=== PATIENT | female | born 1950 | race Caucasian/White ===

== ENCOUNTER 2020-10-04 10:19 | Day surgery (SDC) | payer SELFPAY, OTHER ==
[2020-10-03 09:27] VITALS: BMI 33.1
--- NOTE | 2020-10-03 10:40 | RAD_ITS ---
STUDY: X-RAY CHEST REASON FOR EXAM: Female, 70 years old. HAVING CHEST TIGHTNESS ON EXERTION TECHNIQUE: PA and lateral views of the chest. COMPARISON: None. FINDINGS: The lungs are clear and expanded. There is no demonstrated pleural abnormality. Normal size heart. Normal mediastinum and vicki. Normal visualized pulmonary arteries. There is atherosclerotic calcification of the aortic arch with tortuosity. There are degenerative changes of the visualized thoracic spine. There is degenerative osteoarthritis of the bilateral shoulders. There is no demonstrated abnormality of the visualized soft tissue structures of the upper abdomen. RAD/Chest PA and Lateral IMPRESSION: No acute abnormality seen. Electronically Signed: Wolfgang Lynch, at 15:03 EST , Service support ,
[2020-10-03 11:13] LABS: Absolute Neutrophil Count 6.5 X10^3/uL (2.0-7.7); Basophil# 0.04 X10^3/uL; Basophil% 0.4 % (0-1); Eosinophil# 0.42 X10^3/uL; Hematocrit 42.9 % (37-47); Lymphocyte % 26.5 % (19-41); Mean Corp Hgb Conc 32.6 g/dL (32-36); Mean Corpuscular Hgb 29.3 pg (27.0-32.0); Mean Corpuscular Volume 89.7 fL (81-99); Mean Platelet Vol. 9.2 fl (6.2-12.0); Monocyte# 0.79 X10^3/uL; Monocyte% 7.5 % (0-10); NRBC Flagged by Analyzer 0 % (0-5); Neutrophil # 6.48 X10^3/uL (2.7-7.7); Neutrophil % 61.3 % (47-70); Platelet Count 282 K/mm3 (150-450); RBC Distribution Width SD 43.2 fl (35.1-43.9); Red Blood Count 4.78 M/mm3 (4.2-5.4); White Blood Count 10.6 K/mm3 (4.4-11.0)
[2020-10-03 11:27] VITALS: BMI 33.1
[2020-10-03 11:29] LABS: Anion Gap 5 (5-15); BUN 16 mg/dL (7-18); BUN/Creat Ratio 20.5 RATIO (10-20); Calcium,Total 9.4 mg/dL (8.5-10.1); Chloride 101 mmol/L (98-107); Creatinine, Serum 0.78 mg/dL (0.55-1.02); EST Glomerular Filtration Rate 77 mL/min (>60); Est Glom Filt Rate - Afr Amer 93 mL/min (>60); Estimated Creatinine Clearance 42.07 ml/min; Glucose 142 mg/dL (74-106); Potassium 3.8 mmol/L (3.5-5.1); Sodium Level 135 mmol/L (136-145)
[2020-10-04] VITALS (15 sets, daily range): BP systolic 142–176; BP diastolic 64–90; PULSE 52–60; RESP 16–18; TEMP 36.1–36.3; O2SAT 94–99
--- NOTE | 2020-10-04 10:54 | HP_ITS ---
HPI HPI History of Present Illness Details: Pleasant 70-year-old lady with a history of coronary artery disease, hypertension, hyperlipidemia, diabetes mellitus. She had abnormal stress test in 2004 underwent a left heart catheterization which demonstrated normal left circumflex artery, right coronary artery. Left anterior descending artery had a proximal 75% stenosis for which he underwent angioplasty and stenting. She has done well since then but in the interim has started developing chest discomfort again over the last 1-1/2 years. She says that it is worse with exertion and goes away with rest. She has not had any dizziness or diaphoresis no near syncope or syncope an echocardiogram performed in 2018 demonstrated preserved ejection fraction and no wall motion abnormalities estimated at 55%. She has been compliant with all her medications. Her physical exam here today is significant for clear lung [place]ol[place] regular rate and rhythm and no pedal edema. Her blood pressure is elevated. Her EKG demonstrates normal sinus rhythm with a rate of 64 bpm and no acute changes. Intake Vital Signs 10/03/20 Height 5 ft 3 in 10/03/20 Weight: 187 lb 10/03/20 BMI 33.1 10/03/20 BP 210/90 H 10/03/20 Respiration 16 10/03/20 Pulse 62 10/03/20 Pulse Oximetry (%) 95 Intake Visit Reasons: PCP ref'd for possible cath Allergies pitavastatin [From Livalo] Adverse Reaction (Verified 10/03/20 08:17) muscle pain Uvroacm-Ffw-Xhd Reductase Inhibitor Adverse Reaction (Verified 10/03/20 08:17) muscle pain Medications aspirin 81 mg tablet,delayed release 81 mg PO DAILY 10/01/20 [History Confirmed 10/03/20] atenolol 50 mg tablet 100 mg PO QHS tab 10/01/20 [History Confirmed 10/03/20] ezetimibe 10 mg tablet 10 mg PO DAILY 10/01/20 [History Confirmed 10/01/20] fluoxetine 20 mg capsule 20 mg PO DAILY 10/01/20 [History Confirmed 10/03/20] hydrochlorothiazide 25 mg tablet 25 mg PO DAILY 10/01/20 [History Confirmed 10/03/20] insulin NPH isoph U-100 human 100 unit/mL subcutaneous suspension 20 unit SC BID ml 10/01/20 [History Confirmed 10/03/20] omega 3,6,9 combination no.7 92 mg (43 mg-22 [id number]) chew tablet mg PO 10/01/20 [History Confirmed 10/03/20] ranolazine 500 mg tablet,extended release,12 hr 500 mg PO BID 10/01/20 [History Confirmed 10/03/20] metformin 1,000 mg tablet 500 mg PO BID tab 10/03/20 [History Confirmed 10/03/20] olmesartan 20 mg tablet 20 mg PO DAILY 10/03/20 [History Confirmed 10/03/20] red yeast rice 600 mg tablet 600 mg PO DAILY 10/03/20 [History] Ejection fraction %: 55 to 59 [facility] Medical History Atherosclerotic heart disease [place] coronary artery w/angina pectoris (Chronic) Essential (primary) hypertension (Chronic) Hyperlipidemia (Chronic) Anxiety and depression (Chronic) Obesity (Chronic) Osteoarthritis (Chronic) Varicose vein of leg (Chronic) Surgical History History of coronary artery stent placement (Resolved 11/26/04) Social History (Updated 10/03/20 @ 10:[address] Jonas Gray MD) Smoking Status: Never smoker alcohol intake: never ROS Const Const: Negative for fatigue, weakness, headache(s), frequent falls, difficulty sleeping or excessive sweating Eyes Eyes: Negative for loss of peripheral vision, transient loss of vision, blurry vision, double vision or tunnel vision ENT ENT: Negative for headache(s), dizziness, Nosebleed/epistaxis or balance problems Cardio Chest Pain: Yes (Has had increased episodes over past month, exertional pain x 2 yrs) Frequency: daily Character: tightness, other (some SOB with episodes) Onset: exercise Location: left chest, other (left shoulder, back) Duration: minutes Exacerbation: activity (walking up an incline or long walk) Relieving: rest Recurrence: activity Palpitations: No Edema: None Muscle aches with walking: None Resp Respiratory: Negative for SOB with activity, SOB at rest, SOB orthopnea\SOB lying down, Cough or paroxysmal nocturnal dyspnea GI GI: Negative nausea, vomiting, heartburn or black,tarry stools : Negative for hematuria Musc Musc: Negative for muscle aches/ myalgia, muscle weakness, joint pain or balance problems Skin Skin: Negative non-healing lesions, rash or unusual bruising Neuro Neuro: Negative for dizziness, lightheadedness, near syncope, syncope, orthostatic symptoms, frequent falls, headache(s), weakness, blurry vision, double vision or lack of coordination Monty Hematologic/Lymphatic: Negative for easy bleeding or easy bruising Endo Endo: Negative for fatigue, excessive sweating or increased thirst/drinking Psych Psych: Negative for anxiety or depression Allergy Allergy/Immunology: Negative for hives, Negative for rash Cardiology Exam Const Appearance: cooperative, healthy appearing, no acute distress, well developed and well groomed Nutritional Appearance: average body habitus and well nourished Orientation: alert, awake and oriented x3 Head Head: normal to inspection, normocephalic and atraumatic Ears: hearing grossly normal bilaterally and external ears normal Nose: external nose normal, nares normal, nasal mucous membranes and turbinates normal, septum normal, no nasal discharge Face and Sinus: face symmetric Mouth: oral mucosae normal, tongue normal, oropharynx normal and moist mucous membranes Teeth and gingiva: dentition normal Throat: posterior oropharynx normal, tonsils normal and uvula midline Eyes General: appearance normal, both eyes and all related structures Eyelids: eyelids normal Conjunctivae: conjunctivae normal Pupils: PERRL, normal by confrontation and accommodation normal EOM: EOM intact bilaterally Neck Neck: normal visual inspection, trachea midline and no JVD JVD: +5 Carotids: normal carotid upstroke and bounding pulses Chest Chest inspection: normal inspection of the chest, symmetric chest movement and normal respiratory effort Auscultation: Bilateral: Clear to Auscultation Cardio Palpation: normal PMI Rate: regular rate Rhythm: regular rhythm Heart sounds: S1 normal, S2 normal and normal, physiologic split S2; negative rub, gallop or murmur GI GI: normal to inspection, soft, no hepatosplenomegaly and bowel sounds present Neuro General: alert, awake, oriented x3, gait normal, moves all extremities and no focal sensory deficit Skin Skin: no rashes or lesions noted Extremities Pulses: Normal: Right Femoral Pulse, Left Femoral Pulse, Right Dorsalis Pedis Pulse, Left Dorsalis Pedis Pulse, Right Posterior Tibial Pulse, Left Posterior Tibial Pulse, Right Radial Pulse, Left Radial Pulse Lower Extremity Edema: None: Bilateral Musculoskel Musculoskeletal: No joint tenderness Psych Psychological: normal affect Assessment & Plan 1. Chest pain on exertion R07.9 Plan She does have chest pain on exertion which appears to be suggestive of progressive angina. My recommendation at this time is for us to proceed with a left heart catheterization. I have discussed the above with her the risk benefits alternatives and she understands and agrees to proceed. We will arrange for the above and I will communicate with you the results. Orders Orders: Left Heart Cath/COR/LV Percut Today Basic Metabolic Profile (BMP) Today CBC W/Diff, Automated Today Chest PA and Lateral Today 2. Essential (primary) hypertension I10 Plan She does have a history of hypertension. Her blood pressure in the office was noted to be normal. She is rather hypertensive today. I would not make any change in her medications now until we have performed a cardiac catheterization. Depending on the findings further recommendations will be made. Orders Orders: 12 Lead EKG performed by BMS Today 3. Hyperlipidemia E78.5 Plan She does have a history of hyperlipidemia. Her most recent lipid profile demonstrating a total cholesterol 261, HDL of 78, LDL of 154 and triglycerides 147. She is on Zetia as well as red yeast rice. Apparently muscle pain has been experienced with the statins. Orders Orders: 12 Lead EKG performed by BMS Today Left Heart Cath/COR/LV Percut Today Basic Metabolic Profile (BMP) Today CBC W/Diff, Automated Today Plan Detail Other Orders Orders: 12 Lead EKG performed by BMS Today I25.119, Z95.5 Follow Up 4 Months (mmm) Coding Level of Care Code Off vis,new,level 3 Diagnoses Chest pain on exertion R07.9 Essential (primary) hypertension I10 Hyperlipidemia E78.5 Coding Level of Care Code Off vis,new,level 3 Diagnoses Chest pain on exertion R07.9 Essential (primary) hypertension I10 Hyperlipidemia E78.5 Supplemental Info Supplemental Information Diagnostics Electrocardiogram 10/03/20
--- NOTE | 2020-10-04 12:47 | CL.D_ITS ---
Patient Name: DUKE CHAPMAN Study Date: 10/04/2020 Performing: Jonas Gray MD Ht: 62.99 inches 160 cm : 1950 Wt: 187.39 lbs 85 kg Age: 70 Gender: female BSA: 1.88 PROCEDURE(S) PERFORMED [id number]/LV CLINICAL PROFILE AND INDICATIONS Indications: Worsening Angina Heart Failure: None Stress/Imaging Stress/Image Study Performed: No CAD Presentations: Unstable angina. CONCLUSIONS Progressive disease with mild left main coronary artery disease, previously placed stent in the mid L AD which is patent and then the vessel is subtotally occluded after that with ghost filling of a smal l distal LAD; moderately severe disease noted in the proximal circumflex artery and the mid circumfle x artery with 60% stenosis; diffusely diseased right coronary artery with 70% stenosis noted in the p roximal posterior lateral and posterior descending vessel. RECOMMENDATIONS Referred for immediate PCI DESCRIPTION OF PROCEDURE The patient arrived to the procedure lab. The risks and benefits of the procedure as well as a full d escription of our services here and current unavailability of surgical backup were fully explained to the patient and/or their significant other prior to the catheterization. The Timeout was completed, verifying the correct patient and procedure. The patient's procedural site was prepped and draped in the usual fashion. Local anesthetic was given subcutaneously to right radial region with Lidocaine 2% . Using a modified Seldinger technique, arterial access was obtained via the right radial artery, a 6 Fr sheath was inserted. Left Coronary Artery selective angiography was performed in multiple views u sing a 5 Fr. 4.0 [place] catheter. Right Coronary Artery selective angiography was then performed in mu ltiple views using a 5 Fr. 4.0 [place] catheter. Left Ventriculography was performed in ROBERSON projection using a 5 Fr. Pigtail catheter. LV to AO pullback pressures were then recorded. CORONARY ANGIOGRAPHY DOMINANCE: Right Dominant LEFT HEART ASSESSMENT Left Ventricular Ejection Fraction: by LV Gram 60 % Apical Akinesis Normal Left Ventricular systolic function LEFT MAIN: Diffusely diseased up to 30 % LEFT ANTERIOR DESCENDING ARTERY: MID LAD: Previously placed stent is patent, is occluded DISTAL LAD: Diffusely diseased up to 90 % CIRCUMFLEX ARTERY: PROX CIRC: Diffusely diseased up to 75 % RIGHT CORONARY ARTERY: PROX RCA: Mild luminal irregularities less than 30% MID RCA: Moderate luminal irregularities up to 50% RT PLV: Diffusely diseased up to 70 % RT PDA: Proximal - 80 % Stenosis COMPLICATIONS PROCEDURE MEDICATIONS Versed 1 mg IV Fentanyl 50 mcg IV Versed 1 mg IV Heparin diluted in 23cc Heparinized saline. Patient given 10cc IA of this solution. 10/04/2020 12:09: 00 Heparin 5000 unit(s) IV 10/04/2020 12:34:24 Plavix 300 mg PO 10/04/2020 11:00:00 Verapamil 2.5mg, Ntg 100mcgs, 2000 units of Heparin diluted in 23cc Heparinized saline. Patient give n 10cc IA of this solution. 10/04/2020 12:09:00 SUMMARY OF HEMODYNAMIC DATA Time AIR REST ECG 10:44:40 AO 118/64 (87) SA 12:13:14 LV 146/0, 7 12:20:07 LV 151/3, 10 12:20:13 LV 158/8, 14 12:21:03 LVp 158/9, 16 12:21:19 AOp 161/67 (103) 12:21:24 AO 152/79 (112) 12:35:51 Signed By Jonas Gray MD On 10/04/2020 12:47:12 Jonas Gray MD
--- NOTE | 2020-10-04 14:02 | CL.I_ITS ---
Patient Name: DUKE CHAPMAN Study Date: 10/04/2020 Performing: Nina Reynaga MD Ht: 62.99 inches 160 cm : 1950 Wt: 187.39 lbs 85 kg Age: 70 Gender: female BSA: 1.88 PROCEDURE(S) PERFORMED [id number] W OR WO PTCA, SINGLE CORONARY ARTERY [id number] W OR WO PTCA, SINGLE CORONARY ARTERY CLINICAL PROFILE AND CO-MORBIDITIES Indications: Worsening Angina Heart Failure: None Stress/Imaging Stress/Image Study Performed: No CAD Presentations: Unstable angina. CONCLUSIONS Successful PCI with RILEY to dLM and pLCx RECOMMENDATIONS ASA Indefinitley Brwalterta for at least 12 months Follow up with Dr. Gray Pt. should return for PCI of RCA in around 4 weeks DESCRIPTION OF PROCEDURE The patient arrived to the procedure lab. The risks and benefits of the procedure as well as a full d escription of our services here and current unavailability of surgical backup were fully explained to the patient and/or their significant other prior to the catheterization. The Timeout was completed, verifying the correct patient and procedure. The patient's procedural site was prepped and draped in the usual fashion. Local anesthetic was given subcutaneously to right radial region with Lidocaine 2% Using a modified Seldinger technique,arterial access was obtained via the right radial artery, a 6Fr sheath was inserted. Left Coronary Artery selective angiography was performed in multiple views usin g a 5 Fr. 4.0 Home catheter. Right Coronary Artery selective angiography was then performed in multi ple views using a 5 Fr. 4.0 Home catheter. Left Ventriculography was performed in ROBERSON projection usi ng a 5 Fr. Pigtail catheter. LV to AO pullback pressures were then recorded.The images were reviewed and options discussed. A decision was then made to proceed with an Intervention, IVUS o r other adjunct procedure. XB 3.5 Guide catheter was inserted and engaged into the LCA. BMW Guide wire was advanced to the C ircumflex. Emerge 3.00x12 Balloon catheter was inserted. PTCA balloon inflated at 8 atms for 47 secs. PTCA balloon inflated at 6 atms for 10 secs. PTCA balloon inflated at 6 atms for 11 secs. PTCA ballo on inflated at 8 atms for 11 secs. PTCA balloon inflated at 6 atms for 9 secs. Angiogram performed po st balloon dilatation. Synergy 3.50x12 Drug Eluting stent was inserted. Drug Eluting stent was remove d intact, failed to cross lesion 6fr Guideliner Guide catheter was inserted and engaged into the LCA. NC Euphora 3.5x12 Balloon catheter was inserted. PTCA balloon inflated at 12 atms for 12 secs. PTCA balloon inflated at 6 atms for 6 secs. Angiogram performed post balloon dilatation. Synergy 3.5x12 Dr ug Eluting stent was inserted. Angiogram performed post stent deployment. Synergy 3.50x38 Drug Elutin g stent was inserted. Angiogram performed post stent deployment. Syngery 3.50x16 Drug Eluting stent was inserted. Drug Eluting stent was removed intact, failed to cross lesion Emerge 3.0x 12 Balloon catheter was inserted. Synergy 3.50x16 Drug Eluting stent was inserted. Drug Eluting stent was removed intact, failed to cross lesion Emerge 3.00x12 Balloon catheter was inserted. Balloon cat heter was advanced across lesion in the Left main distal PTCA balloon inflated at 12 atms for 26 secs . Angiogram performed post balloon dilatation. Synergy 3.5 x 16 Drug Eluting stent was reinserted Harpreet g Eluting stent was advanced across the lesion in the left main distal Angiogram performed pre stent deployment. Angiogram performed post stent deployment. The arterial sheath was pulled and a TR Ban d was applied for hemostasis INTERVENTION INFORMATION LESION SITE: Circumflex (Proximal) Lesion Complexity: High/C, chronic total occlusion: No, lesion at bifurcation: Yes, thrombus present: No, lesion length: 44 mm, culprit lesion: Yes, Previously treated lesion: No Pre Stenosis: 80 % Pre intervention MELANIE flow: 3 PROCEDURE: Drug Eluting Stent with pre and post dilatation CABG was considered. It was felt that the LAD was a very small vessel and may not be an ideal target for CABG. Also, the apex was felt to be likely non viable as well. We discussed the risks and benefit s and all options with the patient and then proceeded with PCI in accordance with patient's wishes Post Stenosis: 0 % Post intervention MELANIE flow: 3 Lesion Devices: Bruce .014 BMW Bern Straight 190cm Cardinal 6 Fr XB3.5 100cm Guide Catheter Pedro Sci EMERGE MR 3.00x12 BALLOON Pedro Sci Synergy MR RILEY 3.50x12 Vascular Attivio 6 Macanese GuideLiner Medtronic NC EUPHORA RX 3.5x12 BALLOON Pedro Sci Synergy MR RILEY 3.50x38 LESION SITE: Left Main (Distal) Lesion Complexity: High/C, chronic total occlusion: No, lesion at bifurcation: Yes, thrombus present: No, lesion length: 12 mm, culprit lesion: No, Previously treated lesion: No Pre Stenosis: 70 % Pre intervention MELANIE flow: 3 PROCEDURE: Drug Eluting Stent with pre dilatation. After PCI of the LCx, the LM was foundbe more significantly stenosed. We felt that PCI of the dLM jareth l be better to maintain patency of LCx stents Post Stenosis: 0 % Post intervention MELANIE flow: 3 Lesion Devices: Bruce .014 BMW Bern Straight 190cm Pedro Sci EMERGE MR 3.00x12 BALLOON Vascular Solutions 6 Macanese GuideLiner Pedro Sci Synergy MR RILEY 3.50x16 Pedro Sci EMERGE MR 3.00x15 BALLOON COMPLICATIONS No Complications PROCEDURE MEDICATIONS Versed 1 mg IV Fentanyl 50 mcg IV Versed 1 mg IV Brilinta 180 mg PO @ 10/04/2020 13:41:44 Heparin diluted in 23cc Heparinized saline. Patient given 10cc IA of this solution. 10/04/2020 12:09: 00 Heparin 5000 unit(s) IV 10/04/2020 12:34:24 Plavix 300 mg PO 10/04/2020 11:00:00 Verapamil 2.5mg, Ntg 100mcgs, 2000 units of Heparin diluted in 23cc Heparinized saline. Patient give n 10cc IA of this solution. 10/04/2020 12:09:00 SUMMARY OF HEMODYNAMIC DATA Time AIR REST ECG 10:44:40 AO 118/64 (87) SA 12:13:14 LV 146/0, 7 12:20:07 LV 151/3, 10 12:20:13 LV 158/8, 14 12:21:03 LVp 158/9, 16 12:21:19 AOp 161/67 (103) 12:21:24 AO 152/79 (112) 12:35:51 Signed By Nina Reynaga MD On 10/04/2020 2:01:23 PM Nina Reynaga MD
--- NOTE | 2020-10-04 14:15 | EKG12_ITS ---
Test Reason : POST PCI Blood Pressure : / mmHG Vent. Rate : 052 BPM Atrial Rate : 052 BPM P-R Int : 188 ms QRS Dur : 092 ms QT Int : 498 ms P-R-T Axes : 051 -14 104 degrees QTc Int : 463 ms Sinus bradycardia Septal infarct , age undetermined Nonspecific T wave abnormality Abnormal ECG Confirmed by RONNY BEDOYA, BRANDON ([id number]), video news editor KATIE MCRAE ([id number]) on 10/10/2020 1:15:57 PM Referred By: Jonas Gray Confirmed By:BRANDON JEFFERSON MD
[2020-10-04] MEDS: 0.9% Normal Saline 1,000 ML 150 ML IV (15:15)
[2020-10-04 15:16] LABS: Hematocrit 39.6 % (37-47); Hemoglobin 13.5 g/dL (12.0-15.0); Mean Corp Hgb Conc 34.1 g/dL (32-36); Mean Corpuscular Hgb 30.5 pg (27.0-32.0); Mean Corpuscular Volume 89.4 fL (81-99); Mean Platelet Vol. 9.4 fl (6.2-12.0); Platelet Count 242 K/mm3 (150-450); RBC Distribution Width CV 13.1 % (11.6-14.6); RBC Distribution Width SD 43.1 fl (35.1-43.9); Red Blood Count 4.43 M/mm3 (4.2-5.4); White Blood Count 9.3 K/mm3 (4.4-11.0)
[2020-10-04] MEDS: amLODIPine 10 MG Tablet PO (17:01)
[2020-10-04 18:00] LABS: Bedside Glucose 151 mg/dL (70-110)
[2020-10-04] MEDS: TICAGRELOR 90 MG TABLET PO (22:49)
[2020-10-04] MEDS: Insulin NPH Human 100 UNITS/ML PEN 20 UNITS SC (22:49)
[2020-10-04] MEDS: Insulin Lispro 100 UNIT/ML INSULN.PEN SC (22:49)
[2020-10-04] MEDS: Ranolazine 500 MG Tablet PO (22:56)
[2020-10-04] MEDS: Atenolol 100 MG Tablet PO (22:56)
[2020-10-04 23:06] LABS: Bedside Glucose 241 mg/dL (70-110)
[2020-10-05 03:00] VITALS: PULSE 56
[2020-10-05 04:55] VITALS: BP 143/74; PULSE 57; RESP 16; TEMP 36.1; O2SAT 97
[2020-10-05 06:09] LABS: ALB/GLOB Ratio 0.8 RATIO (0.9-2.4); AST(SGOT) 32 U/L (15-37); Alanine Aminotransfer ALT/SGPT 20 U/L (13-56); Albumin, Serum 3.2 g/dL (3.2-5.0); Alkaline Phosphatase 45 U/L (45-117); Anion Gap 6 (5-15); BUN 14 mg/dL (7-18); BUN/Creat Ratio 17.9 RATIO (10-20); Calcium,Total 8.8 mg/dL (8.5-10.1); Chloride 101 mmol/L (98-107); Creatinine, Serum 0.78 mg/dL (0.55-1.02); EST Glomerular Filtration Rate 77 mL/min (>60); Est Glom Filt Rate - Afr Amer 93 mL/min (>60); Estimated Creatinine Clearance 42.07 ml/min; Globulin 3.8 g/dL (2.2-4.2); Glucose 216 mg/dL (74-106); Potassium 3.7 mmol/L (3.5-5.1); Sodium Level 135 mmol/L (136-145)
[2020-10-05] MEDS: Insulin Lispro 100 UNIT/ML INSULN.PEN SC (06:44)
[2020-10-05 06:56] LABS: Bedside Glucose 210 mg/dL (70-110)
--- NOTE | 2020-10-05 08:13 | CRPHASE1 ---
Patient Communication Former Patient:: Phase I PHII Cardiac Rehab Discussed with Patient:: Yes Guide to Cardiac Rehab Given to Patient:: Yes Cardiac Rehab Facility Choice List Given to Patient:: Yes Choice Program [facility] PHII:: Communication Given to CR, Refer to [facility] Refer Phase II Cardiac Rehab:: Yes Sessions:: 36 sessions - 3 days/wk, 12 weeks Cardiac Rehabilitation Info Cardiac Rehabilitation Program Information: Cardiac Rehabilitation is important for patients like you who are recovering from a heart problem. Cardiac rehabilitation programs are recognized as integral to the continued care of the patient with coronary heart disease. The cardiac rehabilitation program is designed to optimize a patient's physical, psychological, and social functioning. Health healthcare facility administrator work in cardiac rehabilitation programs and assist you with getting the treatments you need to get stronger and healthier - like exercise, healthy eating habits, and medications. Cardiac rehabilitation has been show to help people with heart problems live longer and have better life enjoyment than people who do not go to cardiac rehabilitation. Please contact the Cardiac Rehabilitation Program at [facility] at in two weeks if you have not heard from them.
--- NOTE | 2020-10-05 08:15 | CRPH1.INSTRU ---
General Education CAD and cardiac anatomy and function:: Patient communicates acknowledgment Explanation of diagnoses and procedures:: Patient communicates acknowledgment Sign/Symptoms of GA:: Patient communicates acknowledgment Antiplatelet therapy: Patient communicates acknowledgment Proper use of NTG-SL: Patient communicates acknowledgment Emergency procedures and activation of EMS: Patient communicates acknowledgment Compliance of all prescribed medications: Patient communicates acknowledgment Smoking Patient Nicotine/Smoking Risk Factors Are:: Non-smoker Nicotine/Smoking Response Code:: Patient communicates acknowledgment Dyslipidemia Dyslipidemia Response Code:: Patient communicates acknowledgment Overweight/Obesity Patient Overweight/Obesity Risk Factors Are:: Obesity - > or = 30 Recommendations Include:: Weight loss of 5-10%, Reduced calorie diet, Exercise 5-7 times/week Overweight/Obesity:: Patient communicates acknowledgment Hypertension Recommendations Include:: Maintain BP <130/85, BP <130/80 if diabetic, DASH dietary guidelines, Decrease/maintain normal body weight, Moderation of ETOH Hypertension:: Patient communicates acknowledgment Heart Disease Heart Disease Response Code:: Patient communicates acknowledgment Diabetes Recommendations Include:: Maintain fasting blood sugars 70-110 md/dL, Maintain HgbA1c of 6% or less, Monitor blood sugar as prescribed, Diabetic dietary guidelines, Decrease/maintain body weight Diabetes:: Patient communicates acknowledgment Metabolic Syndrome Metabolic Syndrome Response Code:: Patient communicates acknowledgment Sedentary Sedentary Response Code:: Patient communicates acknowledgment Stress Stress Response Code:: Patient communicates acknowledgment
--- NOTE | 2020-10-05 08:44 | PCM.PN.CARD ---
Subjectve: Patient seen and evaluated. Status post angioplasty doing well. Objective: Vital Signs Temp Pulse Resp BP Pulse Ox 97.0 F L 57 L 16 143/74 H 97 10/05/20 04:55 10/05/20 04:55 10/05/20 04:55 10/05/20 04:55 10/05/20 04:55 Oxygen Delivery Method Room Air Weight: 182 lb 1.629 oz Body Mass Index (BMI) 33.1 Intake and Output for Last 24 Hours 10/03/20 10/04/20 10/05/20 23:59 23:59 23:59 Intake Total 1400 / 1400 0 / 0 Output Total 0 / 0 Balance 1400 / 1400 0 / 0 General: Awake, Alert, Oriented x 3 HEENT: PERRL, EOMI, Sclera Non Icteric Neck: Supple, Good ROM, No Lymph Node Enlargement Lungs: Clear to auscultation Cardiovascular: Regular Rhythm, Normal S1, Normal S2, No Murmurs, No Rubs, No Gallops Vascular: No Carotid Bruits, Normal Femoral Pulses, Normal Radial Pulses, Normal Dorsalis Pedal Pulse, Normal Posterior Tibial Pulses Abdomen: Bowel Sounds Present, Soft, Non Tender, No HSM, No Organomegaly Extremities: No Cyanosis, No Clubbing, No edema Musculoskeletal: No Erythema Skin: No Rashes Lymphatic: No Lymph Node Enlargement Neurological: No Focal Motor or Sensory Deficit Psych/Mental Status: Appropriate 10/04/20 14:57: WBC 9.3, RBC 4.43, Hgb 13.5, Hct 39.6, MCV 89.4, MCH 30.5, MCHC 34.1, Plt Count 242, MPV 9.4 10/05/20 05:25: Sodium 135 L, Potassium 3.7, Chloride 101, Carbon Dioxide 28.0, Anion Gap 6, BUN 14, Creatinine 0.78, Est GFR (MDRD) Af Amer 93, Est GFR (MDRD) Non-Af 77, BUN/Creatinine Ratio 17.9, Glucose 216 H, Calcium 8.8, Total Bilirubin 0.70 Rhythm: EKG: ECHO: Stress Test: Cardiac Cath: PCI: CT Surgery: Holter monitor: EPS: PPM: CXR: Chest CT Scan: Medical Necessity - Tobacco Use Smoking Status: Never smoker Assessment/Plan 1. Status post angioplasty and stenting of the proximal circumflex artery. She did well overnight with no complications. She does have residual right coronary disease. The plan will be to bring her back in approximately 4 weeks for stenting with Dr. Reynaga. My office will arrange follow-up.
--- NOTE | 2020-10-05 08:46 | PCM.DC.CCA ---
Discharge Diet: Low fat/ Low Cholesterol Lifting Restrictions: 10 pounds and also avoid any pushing or pulling for 3 days after your test. Additional Activity Instructions:: You must have someone drive you home. Do not drive until instructed by your doctor. You must have someone stay with you all night after your test. Rest in bed or on the couch until the next morning. Limit the number of times you go up and down stairs the day of your test. Apply pressure to the puncture site if you sneeze or cough. Call your doctor if your incision/area has: Increased Pain/ Swelling, Increased Redness, Foul Smelling Discharge, Swelling at the incision site Call your doctor if you observe: Fever of 101 or Higher Additional Dressing/Incision Instructions:: Keep the dressing (bandage) on until the next morning. You may then shower, but do not take a tub bath for 5 days after your test. It is normal to have some tenderness and discomfort at the puncture site. Sometimes bruising also occurs. However, if pain, numbness, or coldness occurs below the puncture site (in your leg, toes, arms or fingers) call your doctor at once. You may have a small, marble sized knot at the puncture site. This is normal. Do not rub it. It will go away in 4-6 weeks. Bleeding can occur from the area where the puncture was done. Blood may spurt or drip from the site. If blood spurts, apply pressure right away to stop bleeding and call 911. Although rare, bleeding into the tissue (hematoma) can also occur. If this happens, a large, firm area goose egg under the skin will appear. If any of these occur, lie down as flat as you can and have someone apply firm pressure to the cath site with a gauze pad or a clean washcloth for 10-15 minutes. Call 911 or go to the Emergency Department. Allergies/Adverse Reactions: Allergies pitavastatin [From Livalo] Adverse Reaction (Verified 10/03/20 08:17) muscle pain Gzolsva-Qdm-Bya Reductase Inhibitor Adverse Reaction (Verified 10/03/20 08:17) muscle pain Medications to take at Discharge aspirin 81 mg tablet,delayed release 81 mg PO DAILY 10/01/20 atenolol 50 mg tablet 100 mg PO QHS tab 10/01/20 ezetimibe 10 mg tablet 10 mg PO DAILY 10/01/20 fluoxetine 20 mg capsule 20 mg PO DAILY 10/01/20 hydrochlorothiazide 25 mg tablet 25 mg PO DAILY 10/01/20 insulin NPH isoph U-100 human 100 unit/mL subcutaneous suspension 20 unit SC BID ml 10/01/20 omega 3,6,9 combination no.7 92 mg (43 mg-22 [id number]) chew tablet 92 mg PO DAILY 10/01/20 ranolazine 500 mg tablet,extended release,12 hr 500 mg PO BID 10/01/20 metformin 1,000 mg tablet 500 mg PO BID tab 10/03/20 olmesartan 20 mg tablet 20 mg PO DAILY 10/03/20 red yeast rice 600 mg tablet 600 mg PO DAILY 10/03/20 Primary Care Physician: Terri Rowland NP, [employer] [Primary Care Provider] - Test Results: Test results from this visit will be discussed in further detail at your follow-up appointment, if applicable. When: [facility] office 6 weeks. will set up for pci in 4 weeks Proposed Discharge Date: 10/05/20 Cardiac Rehabilitation Info Cardiac Rehabilitation Program Information: Cardiac Rehabilitation is important for patients like you who are recovering from a heart problem. Cardiac rehabilitation programs are recognized as integral to the continued care of the patient with coronary heart disease. The cardiac rehabilitation program is designed to optimize a patient's physical, psychological, and social functioning. Health career technical education teacher work in cardiac rehabilitation programs and assist you with getting the treatments you need to get stronger and healthier - like exercise, healthy eating habits, and medications. Cardiac rehabilitation has been show to help people with heart problems live longer and have better life enjoyment than people who do not go to cardiac rehabilitation. Please contact the Cardiac Rehabilitation Program at [facility] at in two weeks if you have not heard from them.
[2020-10-05 09:18] VITALS: BP 164/67; PULSE 61; RESP 16; TEMP 36.4; O2SAT 96
--- NOTE | 2020-10-05 09:36 | CASEMGMT ---
PAGE TABOR NOTE: Pt being discharged. Per Dr Gray, pt should go home on Brilinta 90 mg po BID. Script has been sent to [facility]. Call placed to Edy @ pharmacy. Brilinta 30 day savings card will be applied. Refills will be approx $450. Pt has f/u appt scheduled w/Dr Gray on Nov 09 and pt to have PCI scheduled in 4 wks. PAGE TABOR placed call to Fanta @ [facility]. Per Fanta, since pt will be getting additional stents, that pt will need to remain on Brilinta. She was made aware Brilinta refills will be approx $450. She states they can assist pt/family with applying for financial assistance for this if refills are not affordable. Pt's has arrived to [facility] to take pt home. Pt/ went to [facility] and picked up 30-day supply of Brilinta (free). PAGE TABOR explained to them importance of taking medication as prescribed. Also, explained to them about the 30-day savings card and cost of refills will be approx $450. They stated they would be interested in applying for financial assistance. PAGE TABOR escorted pt/ to [facility] at this time for them to meet with staff their for assistance w/completing the paperwork. Pt/ made aware [facility] can deliver refills to them at their home, but they will need to call in when it is time to get refills to ask for delivery. They were also made aware, if they prefer to get through [facility], that they will need to contact [facility] to have script transferred. They deny having any other questions/concerns/needs at this time. Severo CARVER RN, CM
--- NOTE | 2020-10-05 10:00 | EKG12_ITS ---
Test Reason : AM EKG Blood Pressure : / mmHG Vent. Rate : 057 BPM Atrial Rate : 057 BPM P-R Int : 200 ms QRS Dur : 088 ms QT Int : 514 ms P-R-T Axes : 044 -16 089 degrees QTc Int : 500 ms Sinus bradycardia Septal infarct , age undetermined Nonspecific ST and T wave abnormality Abnormal ECG Confirmed by RONNY BEDOYA, BRANDON ([id number]), design editor KATIE MCRAE ([id number]) on 10/10/2020 1:38:27 PM Referred By: Jonas Gray Confirmed By:BRANDON JEFFERSON MD
--- NOTE | 2020-10-05 10:22 | PHA.DC.MR ---
Pharmacy Service has performed discharge medication reconciliation for this patient. The patient's discharge medication list was reviewed for discrepancies and discrepancies were resolved. Home Medications aspirin 81 mg tablet,delayed release 81 mg PO DAILY 10/01/20 atenolol 50 mg tablet 100 mg PO QHS tab 10/01/20 ezetimibe 10 mg tablet 10 mg PO DAILY 10/01/20 fluoxetine 20 mg capsule 20 mg PO DAILY 10/01/20 hydrochlorothiazide 25 mg tablet 25 mg PO DAILY 10/01/20 insulin NPH isoph U-100 human 100 unit/mL subcutaneous suspension 20 unit SC BID ml 10/01/20 omega 3,6,9 combination no.7 92 mg (43 mg-22 [id number]) chew tablet 92 mg PO DAILY 10/01/20 ranolazine 500 mg tablet,extended release,12 hr 500 mg PO BID 10/01/20 metformin 1,000 mg tablet 500 mg PO BID tab 10/03/20 olmesartan 20 mg tablet 20 mg PO DAILY 10/03/20 red yeast rice 600 mg tablet 600 mg PO DAILY 10/03/20 ticagrelor 90 mg tablet 90 mg PO BID #60 tab 10/05/20
== END 2020-10-05 08:45 | disposition home or self-care (01) ==
LOC: CLSP 10:26 → PCU 10-05 10:05
PROVIDERS: Specialist; PCP Nurse Practitioner Family; Referring Provider Internal Medicine Cardiovascular Disease; Visit Provider Internal Medicine Cardiovascular Disease
DX: I25.110 Atherosclerotic heart disease of native coronary artery with unstable angina pectoris (principal); I10 Essential (primary) hypertension; E78.5 Hyperlipidemia, unspecified; E11.9 Type 2 diabetes mellitus without complications; M19.90 Unspecified osteoarthritis, unspecified site; F32.9 Major depressive disorder, single episode, unspecified; F41.9 Anxiety disorder, unspecified; E66.9 Obesity, unspecified; Z68.33 Body mass index [BMI] 33.0-33.9, adult; Z95.5 Presence of coronary angioplasty implant and graft; Z79.82 Long term (current) use of aspirin; Z79.4 Long term (current) use of insulin; Z79.899 Other long term (current) drug therapy
CPT/HCPCS: 36415; 71046; 80048; 80053; 82962; 85025; 85027; 92928; 93005; 93458; 99152; 99153; J7030; J7040; Q9967; C1725; C1769; C1874; C1887; C1894; C9600; J1327

== ENCOUNTER 2020-11-01 08:35 | Day surgery (SDC) | payer SELFPAY, OTHER ==
[2020-10-03 11:27] VITALS: BMI 33.1
[2020-10-30 10:32] VITALS: BMI 33.1
[2020-11-01] VITALS (16 sets, daily range): BP systolic 118–152; BP diastolic 61–78; PULSE 54–73; RESP 16–18; TEMP 36.4–36.8; O2SAT 94–99; BMI 31.9
--- NOTE | 2020-11-01 06:15 | HP_ITS ---
HPI HPI History of Present Illness Details: Pleasant 70-year-old lady with a history of coronary artery disease, hypertension, hyperlipidemia, diabetes mellitus. She had abnormal stress test in 2004 underwent a left heart catheterization which demonstrated normal left circumflex artery, right coronary artery. Left anterior descending artery had a proximal 75% stenosis for which he underwent angioplasty and stenting. She has done well since then but in the interim has started developing chest discomfort again over the last 1-1/2 years. She says that it is worse with exertion and goes away with rest. She has not had any dizziness or diaphoresis no near syncope or syncope an echocardiogram performed in 2018 demonstrated preserved ejection fraction and no wall motion abnormalities estimated at 55%. She has been compliant with all her medications. Her physical exam here today is significant for clear lung rebolledo regular rate and rhythm and no pedal edema. Her blood pressure is elevated. Her EKG demonstrates normal sinus rhythm with a rate of 64 bpm and no acute changes. Intake Vital Signs 10/03/20 Height 5 ft 3 in 10/03/20 Weight: 187 lb 10/03/20 BMI 33.1 10/03/20 BP 210/90 H 10/03/20 Respiration 16 10/03/20 Pulse 62 10/03/20 Pulse Oximetry (%) 95 Intake Visit Reasons: PCP ref'd for possible cath Allergies pitavastatin [From Livalo] Adverse Reaction (Verified 10/03/20 08:17) muscle pain Uzgauwy-Lua-Blz Reductase Inhibitor Adverse Reaction (Verified 10/03/20 08:17) muscle pain Medications aspirin 81 mg tablet,delayed release 81 mg PO DAILY 10/01/20 [History Confirmed 10/03/20] atenolol 50 mg tablet 100 mg PO QHS tab 10/01/20 [History Confirmed 10/03/20] ezetimibe 10 mg tablet 10 mg PO DAILY 10/01/20 [History Confirmed 10/01/20] fluoxetine 20 mg capsule 20 mg PO DAILY 10/01/20 [History Confirmed 10/03/20] hydrochlorothiazide 25 mg tablet 25 mg PO DAILY 10/01/20 [History Confirmed 10/03/20] insulin NPH isoph U-100 human 100 unit/mL subcutaneous suspension 20 unit SC BID ml 10/01/20 [History Confirmed 10/03/20] omega 3,6,9 combination no.7 92 mg (43 mg-22 [id number]) chew tablet mg PO 10/01/20 [History Confirmed 10/03/20] ranolazine 500 mg tablet,extended release,12 hr 500 mg PO BID 10/01/20 [History Confirmed 10/03/20] metformin 1,000 mg tablet 500 mg PO BID tab 10/03/20 [History Confirmed 10/03/20] olmesartan 20 mg tablet 20 mg PO DAILY 10/03/20 [History Confirmed 10/03/20] red yeast rice 600 mg tablet 600 mg PO DAILY 10/03/20 [History] Ejection fraction %: 55 to 59 [facility] Medical History Atherosclerotic heart disease [place] coronary artery w/angina pectoris (Chronic) Essential (primary) hypertension (Chronic) Hyperlipidemia (Chronic) Anxiety and depression (Chronic) Obesity (Chronic) Osteoarthritis (Chronic) Varicose vein of leg (Chronic) Surgical History History of coronary artery stent placement (Resolved 11/26/04) Social History (Updated 10/03/20 @ 10:[address] Jonas Gray MD) Smoking Status: Never smoker alcohol intake: never ROS Const Const: Negative for fatigue, weakness, headache(s), frequent falls, difficulty sleeping or excessive sweating Eyes Eyes: Negative for loss of peripheral vision, transient loss of vision, blurry vision, double vision or tunnel vision ENT ENT: Negative for headache(s), dizziness, Nosebleed/epistaxis or balance problems Cardio Chest Pain: Yes (Has had increased episodes over past month, exertional pain x 2 yrs) Frequency: daily Character: tightness, other (some SOB with episodes) Onset: exercise Location: left chest, other (left shoulder, back) Duration: minutes Exacerbation: activity (walking up an incline or long walk) Relieving: rest Recurrence: activity Palpitations: No Edema: None Muscle aches with walking: None Resp Respiratory: Negative for SOB with activity, SOB at rest, SOB orthopnea\SOB lying down, Cough or paroxysmal nocturnal dyspnea GI GI: Negative nausea, vomiting, heartburn or black,tarry stools : Negative for hematuria Musc Musc: Negative for muscle aches/ myalgia, muscle weakness, joint pain or balance problems Skin Skin: Negative non-healing lesions, rash or unusual bruising Neuro Neuro: Negative for dizziness, lightheadedness, near syncope, syncope, orthostatic symptoms, frequent falls, headache(s), weakness, blurry vision, double vision or lack of coordination Monty Hematologic/Lymphatic: Negative for easy bleeding or easy bruising Endo Endo: Negative for fatigue, excessive sweating or increased thirst/drinking Psych Psych: Negative for anxiety or depression Allergy Allergy/Immunology: Negative for hives, Negative for rash Cardiology Exam Const Appearance: cooperative, healthy appearing, no acute distress, well developed and well groomed Nutritional Appearance: average body habitus and well nourished Orientation: alert, awake and oriented x3 Head Head: normal to inspection, normocephalic and atraumatic Ears: hearing grossly normal bilaterally and external ears normal Nose: external nose normal, nares normal, nasal mucous membranes and turbinates normal, septum normal, no nasal discharge Face and Sinus: face symmetric Mouth: oral mucosae normal, tongue normal, oropharynx normal and moist mucous membranes Teeth and gingiva: dentition normal Throat: posterior oropharynx normal, tonsils normal and uvula midline Eyes General: appearance normal, both eyes and all related structures Eyelids: eyelids normal Conjunctivae: conjunctivae normal Pupils: PERRL, normal by confrontation and accommodation normal EOM: EOM intact bilaterally Neck Neck: normal visual inspection, trachea midline and no JVD JVD: +5 Carotids: normal carotid upstroke and bounding pulses Chest Chest inspection: normal inspection of the chest, symmetric chest movement and normal respiratory effort Auscultation: Bilateral: Clear to Auscultation Cardio Palpation: normal PMI Rate: regular rate Rhythm: regular rhythm Heart sounds: S1 normal, S2 normal and normal, physiologic split S2; negative rub, gallop or murmur GI GI: normal to inspection, soft, no hepatosplenomegaly and bowel sounds present Neuro General: alert, awake, oriented x3, gait normal, moves all extremities and no focal sensory deficit Skin Skin: no rashes or lesions noted Extremities Pulses: Normal: Right Femoral Pulse, Left Femoral Pulse, Right Dorsalis Pedis Pulse, Left Dorsalis Pedis Pulse, Right Posterior Tibial Pulse, Left Posterior Tibial Pulse, Right Radial Pulse, Left Radial Pulse Lower Extremity Edema: None: Bilateral Musculoskel Musculoskeletal: No joint tenderness Psych Psychological: normal affect Assessment & Plan 1. Chest pain on exertion R07.9 Plan She does have chest pain on exertion which appears to be suggestive of progressive angina. My recommendation at this time is for us to proceed with a left heart catheterization. I have discussed the above with her the risk benefits alternatives and she understands and agrees to proceed. We will arrange for the above and I will communicate with you the results. Orders Orders: Left Heart Cath/COR/LV Percut Today Basic Metabolic Profile (BMP) Today CBC W/Diff, Automated Today Chest PA and Lateral Today 2. Essential (primary) hypertension I10 Plan She does have a history of hypertension. Her blood pressure in the office was noted to be normal. She is rather hypertensive today. I would not make any change in her medications now until we have performed a cardiac catheterization. Depending on the findings further recommendations will be made. Orders Orders: 12 Lead EKG performed by BMS Today 3. Hyperlipidemia E78.5 Plan She does have a history of hyperlipidemia. Her most recent lipid profile demonstrating a total cholesterol 261, HDL of 78, LDL of 154 and triglycerides 147. She is on Zetia as well as red yeast rice. Apparently muscle pain has been experienced with the statins. Orders Orders: 12 Lead EKG performed by BMS Today Left Heart Cath/COR/LV Percut Today Basic Metabolic Profile (BMP) Today CBC W/Diff, Automated Today Plan Detail Other Orders Orders: 12 Lead EKG performed by BMS Today I25.119, Z95.5 Follow Up 4 Months (mmm) Coding Level of Care Code Off vis,new,level 3 Diagnoses Chest pain on exertion R07.9 Essential (primary) hypertension I10 Hyperlipidemia E78.5 Coding Level of Care Code Off vis,new,level 3 Diagnoses Chest pain on exertion R07.9 Essential (primary) hypertension I10 Hyperlipidemia E78.5 Supplemental Info Supplemental Information Diagnostics Electrocardiogram 10/03/20
--- NOTE | 2020-11-01 11:00 | EKG12_ITS ---
Test Reason : ROUTINE Blood Pressure : / mmHG Vent. Rate : 058 BPM Atrial Rate : 058 BPM P-R Int : 194 ms QRS Dur : 088 ms QT Int : 466 ms P-R-T Axes : 048 -23 121 degrees QTc Int : 457 ms Sinus bradycardia Septal infarct (cited on or before 04-OCT-2020) ST & T wave abnormality, consider lateral ischemia Abnormal ECG When compared with ECG of 05-OCT-2020 05:39, Serial changes of Septal infarct Present Confirmed by FRAN BEDOYA, MARILEE ([id number]), movie editor KATIE MCRAE ([id number]) on 11/06/2020 9:25:36 AM Referred By: Ibrahima Reynaga Confirmed By:MARILEE PETERS MD
--- NOTE | 2020-11-01 11:03 | CL.I_ITS ---
Patient Name: DUKE CHAPMAN Study Date: 11/01/2020 Performing: Nina Reynaga MD Ht: 63 inches 160 cm : 1950 Wt: 187.6 lbs 85 kg Age: 70 Gender: female BSA: 1.88 PROCEDURE(S) PERFORMED [id number] W OR WO PTCA, SINGLE CORONARY ARTERY CLINICAL PROFILE AND CO-MORBIDITIES Indications: Staged PCI of known RCA disease Heart Failure: None CONCLUSIONS Successful RIELY to mid and distal RCA RECOMMENDATIONS ASA Indefinitley Rikata for at least 12 months Follow up with primary carcass washer DESCRIPTION OF PROCEDURE The patient arrived to the procedure lab. The risks and benefits of the procedure as well as a full d escription of our services here and current unavailability of surgical backup were fully explained to the patient and/or their significant other prior to the catheterization. The Timeout was completed, verifying the correct patient and procedure. The patient's procedural site was prepped and draped in the usual fashion. Local anesthetic was given subcutaneously to right radial region with Lidocaine 2% . Using a modified Seldinger technique, arterial access was obtained via the right radial artery, a 6 Fr sheath was inserted.. JR4 Guide catheter was inserted and engaged into the RCA. BMW [place] Guide wire was advanced t o the RCA. Emerge 2.5 x 12 Balloon catheter was inserted. Balloon catheter was advanced across lesion in the right coronary, distal. PTCA balloon inflated at 6 atms for 15 secs. Synergy 3.0 x 16 Drug El uting stent was inserted. Drug Eluting stent was advanced across the lesion in the right coronary, di stal. Angiogram performed pre stent deployment. Synergy 3.5 x 38 Drug Eluting stent was inserted. Harpreet g Eluting stent was advanced across the lesion in the right coronary, mid. Angiogram performed pre st ent deployment. Synergy 3.5 x 16 Drug Eluting stent was inserted. Drug Eluting stent was advanced acr oss the lesion in the right coronary, mid. Angiogram performed post stent deployment. NC Emerge 3.5 x 12 Balloon catheter was inserted. Balloon catheter was advanced across lesion in the right coronary, distal. Angiogram performed post balloon dilatation. The arterial sheath was pulled and a TR Band was applied for hemostasis INTERVENTION INFORMATION LESION SITE: RCA (Distal) Lesion Complexity: High/C, chronic total occlusion: No, lesion at bifurcation: No, thrombus present: No, lesion length: 14 mm, culprit lesion: Yes, Previously treated lesion: No Pre Stenosis: 90 % Pre intervention MELANIE flow: 3 PROCEDURE: Drug Eluting Stent with pre and post dilatation Post Stenosis: 0 % Post intervention MELANIE flow: 3 Lesion Devices: Medtronic 6 Fr JR4.0 100cm Guide Catheter Bruce .014 [employer] [place] Straight 190cm Pedro Sci EMERGE MR 2.50x12 BALLOON Pedro Sci Synergy MR RILEY 3.00x16 Pedro Sci NC EMERGE MR 3.50x12 BALLOON LESION SITE: RCA (Mid) Lesion Complexity: High/C, chronic total occlusion: No, lesion at bifurcation: No, thrombus present: No, lesion length: 45 mm, culprit lesion: Yes, Previously treated lesion: No Pre Stenosis: 80 % Pre intervention MELANIE flow: 3 PROCEDURE: Drug Eluting Stent with pre dilatation. Post Stenosis: 0 % Post intervention MELANIE flow: 3 Lesion Devices: Medtronic 6 Fr JR4.0 100cm Guide Catheter Bruce .014 [employer] [place] Straight 190cm Pedro Sci Synergy MR RILEY 3.50x38 Pedro Sci Synergy MR RILEY 3.50x16 COMPLICATIONS No Complications PROCEDURE MEDICATIONS Fentanyl 50 mcg IV Versed 1 mg IV Oxygen: 2 L/min via nasal cannula Heparin given IA 11/01/2020 09:52:39 Heparin 4000 unit(s) IV 11/01/2020 09:52:44 Nitro 200 mcg IC 11/01/2020 10:20:28 Verapamil 2.5mg, Ntg 100mcgs, 3000 units of Heparin given IA 11/01/2020 09:52:39 SUMMARY OF HEMODYNAMIC DATA Time AIR REST ECG 09:00:14 ECG 09:34:37 AO 123/57 (85) SA 09:55:45 Signed By Nina Reynaga MD On 11/01/2020 11:02:07 Nina Reynaga MD
--- NOTE | 2020-11-01 11:09 | CRPHASE1 ---
Patient Communication Former Patient:: Phase I - Patient had previous procedure performeed on 10/04/20. This is her second of a staged procedure. PHII Cardiac Rehab Discussed with Patient:: Yes Guide to Cardiac Rehab Given to Patient:: Yes Cardiac Rehab Facility Choice List Given to Patient:: Yes Choice Program [facility] PHII:: Communication Given to CR, Refer to [facility] Oil Burner Journeyman:: Ibrahima Reynaga Refer Phase II Cardiac Rehab:: Yes Sessions:: 36 sessions - 3 days/wk, 12 weeks Cardiac Rehabilitation Info Cardiac Rehabilitation Program Information: Cardiac Rehabilitation is important for patients like you who are recovering from a heart problem. Cardiac rehabilitation programs are recognized as integral to the continued care of the patient with coronary heart disease. The cardiac rehabilitation program is designed to optimize a patient's physical, psychological, and social functioning. Health home care specialist work in cardiac rehabilitation programs and assist you with getting the treatments you need to get stronger and healthier - like exercise, healthy eating habits, and medications. Cardiac rehabilitation has been show to help people with heart problems live longer and have better life enjoyment than people who do not go to cardiac rehabilitation. Please contact the Cardiac Rehabilitation Program at [facility] at in two weeks if you have not heard from them.
--- NOTE | 2020-11-01 11:10 | CRPH1.INSTRU ---
General Education CAD and cardiac anatomy and function:: Patient communicates acknowledgment Explanation of diagnoses and procedures:: Patient communicates acknowledgment Sign/Symptoms of [place]:: Patient communicates acknowledgment Antiplatelet therapy: Patient communicates acknowledgment Emergency procedures and activation of EMS: Patient communicates acknowledgment Compliance of all prescribed medications: Patient communicates acknowledgment - Patient communicated acknowledgment of cardiac risk factors. She was previously instructed on 10/04/2020 following a previous procedure.
[2020-11-01] MEDS: 0.9% Normal Saline 1,000 ML 100 ML IV (11:43)
[2020-11-01 11:50] LABS: Bedside Glucose 182 mg/dL (70-110)
--- NOTE | 2020-11-01 18:48 | PCM.DC.CCA ---
Discharge Diet: Low fat/ Low Cholesterol Discharge Activity: Return to Normal Activity Lifting Restrictions: 10 pounds and also avoid any pushing or pulling for 3 days after your test. Additional Activity Instructions:: You must have someone drive you home. Do not drive until instructed by your doctor. You must have someone stay with you all night after your test. Rest in bed or on the couch until the next morning. Limit the number of times you go up and down stairs the day of your test. Call your doctor if your incision/area has: Continuous Slow Oozing, Sudden Increased Bleeding, Increased Pain/ Swelling, Increased Redness, Foul Smelling Discharge, Swelling at the incision site Remove Dressing in (days):: 1 Additional Dressing/Incision Instructions:: Keep the dressing (bandage) on until the next morning. You may then shower, but do not take a tub bath for 5 days after your test. It is normal to have some tenderness and discomfort at the puncture site. Sometimes bruising also occurs. However, if pain, numbness, or coldness occurs below the puncture site (in your leg, toes, arms or fingers) call your doctor at once. You may have a small, marble sized knot at the puncture site. This is normal. Do not rub it. It will go away in 4-6 weeks. Bleeding can occur from the area where the puncture was done. Blood may spurt or drip from the site. If blood spurts, apply pressure right away to stop bleeding and call 911. Although rare, bleeding into the tissue (hematoma) can also occur. If this happens, a large, firm area goose egg under the skin will appear. If any of these occur, lie down as flat as you can and have someone apply firm pressure to the cath site with a gauze pad or a clean washcloth for 10-15 minutes. Call 911 or go to the Emergency Department. Allergies/Adverse Reactions: Allergies pitavastatin [From Livalo] Adverse Reaction (Verified 10/03/20 08:17) muscle pain Jmxvzcf-Gau-Gbe Reductase Inhibitor Adverse Reaction (Verified 10/03/20 08:17) muscle pain Medications to take at Discharge aspirin 81 mg tablet,delayed release 81 mg PO DAILY 10/01/20 atenolol 50 mg tablet 100 mg PO QHS tab 10/01/20 ezetimibe 10 mg tablet 10 mg PO DAILY 10/01/20 fluoxetine 20 mg capsule 20 mg PO DAILY 10/01/20 hydrochlorothiazide 25 mg tablet 25 mg PO DAILY 10/01/20 insulin NPH isoph U-100 human 100 unit/mL subcutaneous suspension 20 unit SC BID ml 10/01/20 omega 3,6,9 combination no.7 92 mg (43 mg-22 [id number]) chew tablet 92 mg PO DAILY 10/01/20 ranolazine 500 mg tablet,extended release,12 hr 500 mg PO BID 10/01/20 metformin 1,000 mg tablet 500 mg PO BID tab 10/03/20 olmesartan 20 mg tablet 20 mg PO DAILY 10/03/20 red yeast rice 600 mg tablet 600 mg PO DAILY 10/03/20 ticagrelor 90 mg tablet 90 mg PO BID #60 tab 10/05/20 Orders to be completed after discharge: Phase II, Outpatient Cardiac Rehab Location: None Selected Primary Care Physician: Terri Rowland TYPE ROLLING MACHINE OPERATOR, TYPE ROLLING MACHINE OPERATOR-C [Primary Care Provider] - Test Results: Test results from this visit will be discussed in further detail at your follow-up appointment, if applicable. Please Follow Up With: Jonas Gray MD - 3-4 weeks Cardiac Rehabilitation Info Cardiac Rehabilitation Program Information: Cardiac Rehabilitation is important for patients like you who are recovering from a heart problem. Cardiac rehabilitation programs are recognized as integral to the continued care of the patient with coronary heart disease. The cardiac rehabilitation program is designed to optimize a patient's physical, psychological, and social functioning. Health director of health care marketing work in cardiac rehabilitation programs and assist you with getting the treatments you need to get stronger and healthier - like exercise, healthy eating habits, and medications. Cardiac rehabilitation has been show to help people with heart problems live longer and have better life enjoyment than people who do not go to cardiac rehabilitation. Please contact the Cardiac Rehabilitation Program at [facility] at in two weeks if you have not heard from them.
--- NOTE | 2020-11-01 19:00 | PCS.PANDOC ---
PANDEMIC DOCUMENTATION INITIATED: Date: 11/01/20 Time: 10:48
[2020-11-01] MEDS: TICAGRELOR 90 MG TABLET PO (21:03)
[2020-11-01] MEDS: Insulin NPH Human 100 UNITS/ML PEN 20 UNITS SC (21:03)
[2020-11-01] MEDS: Ranolazine 500 MG Tablet PO (21:04)
[2020-11-01] MEDS: Atenolol 100 MG Tablet PO (21:04)
[2020-11-01 21:45] LABS: Bedside Glucose 257 mg/dL (70-110)
[2020-11-02 02:57] VITALS: PULSE 58
[2020-11-02 03:00] VITALS: BP 140/75; PULSE 60; RESP 16; TEMP 37; O2SAT 98
[2020-11-02 06:54] LABS: Hematocrit 37.1 % (37-47); Hemoglobin 12.2 g/dL (12.0-15.0); Mean Corp Hgb Conc 32.9 g/dL (32-36); Mean Corpuscular Hgb 29.5 pg (27.0-32.0); Mean Corpuscular Volume 89.8 fL (81-99); Mean Platelet Vol. 9.5 fl (6.2-12.0); Platelet Count 215 K/mm3 (150-450); RBC Distribution Width CV 13.2 % (11.6-14.6); RBC Distribution Width SD 43.2 fl (35.1-43.9); Red Blood Count 4.13 M/mm3 (4.2-5.4); White Blood Count 8.2 K/mm3 (4.4-11.0)
[2020-11-02 07:00] VITALS: PULSE 59
[2020-11-02 07:19] LABS: ALB/GLOB Ratio 0.8 RATIO (0.9-2.4); AST(SGOT) 26 U/L (15-37); Alanine Aminotransfer ALT/SGPT 21 U/L (13-56); Alkaline Phosphatase 44 U/L (45-117); Anion Gap 6 (5-15); BUN 14 mg/dL (7-18); Calcium,Total 8.3 mg/dL (8.5-10.1); Chloride 102 mmol/L (98-107); Creatinine, Serum 0.78 mg/dL (0.55-1.02); EST Glomerular Filtration Rate 77 mL/min (>60); Est Glom Filt Rate - Afr Amer 94 mL/min (>60); Estimated Creatinine Clearance 43.91 ml/min; Globulin 3.7 g/dL (2.2-4.2); Glucose 221 mg/dL (74-106); Potassium 3.8 mmol/L (3.5-5.1); Protein, Total 6.7 g/dL (6.4-8.2); Sodium Level 135 mmol/L (136-145)
[2020-11-02 07:43] VITALS: O2SAT 94
[2020-11-02 08:52] VITALS: BP 167/75; PULSE 63; RESP 18; TEMP 36.9; O2SAT 97
[2020-11-02] MEDS: Ezetimibe 10 MG Tablet PO (08:58)
[2020-11-02] MEDS: Aspirin E.C. 81 MG Tablet PO (08:58)
[2020-11-02] MEDS: hydroCHLOROthiazide 25 MG Tablet PO (08:59)
[2020-11-02] MEDS: TICAGRELOR 90 MG TABLET PO (08:59)
[2020-11-02] MEDS: FLUoxetine 20 MG Capsule PO (08:59)
[2020-11-02] MEDS: Ranolazine 500 MG Tablet PO (08:59)
[2020-11-02] MEDS: Losartan Potassium 50 MG Tablet PO (08:59)
[2020-11-02] MEDS: Insulin NPH Human 100 UNITS/ML PEN 20 UNITS SC (08:59)
--- NOTE | 2020-11-02 10:00 | EKG12_ITS ---
Test Reason : AM EKG Blood Pressure : / mmHG Vent. Rate : 060 BPM Atrial Rate : 060 BPM P-R Int : 192 ms QRS Dur : 088 ms QT Int : 492 ms P-R-T Axes : 045 -25 104 degrees QTc Int : 492 ms Normal sinus rhythm Septal infarct , age undetermined ST & T wave abnormality, consider lateral ischemia Abnormal ECG When compared with ECG of 01-NOV-2020 12:56, MANUAL COMPARISON REQUIRED, DATA IS UNCONFIRMED Confirmed by FRAN BEDOYA, MARILEE ([id number]), social media editor KATIE MCRAE ([id number]) on 11/06/2020 9:22:07 AM Referred By: Ibrahima Reynaga Confirmed By:MARILEE PETERS MD
--- NOTE | 2020-11-02 10:24 | PCM.PN.CARD ---
Subjectve: Patient seen and evaluated. Appears to be doing well. Objective: Vital Signs Temp Pulse Resp BP Pulse Ox 98.4 F 63 18 167/75 H 97 11/02/20 08:52 11/02/20 08:52 11/02/20 08:52 11/02/20 08:52 11/02/20 08:52 Oxygen Flow Rate (L/min) 96 Oxygen Delivery Method Room Air Weight: 186 lb 1.122 oz Body Mass Index (BMI) 31.9 Intake and Output for Last 24 Hours 10/31/20 11/01/20 11/02/20 23:59 23:59 23:59 Intake Total 1168.33 / 1168.33 100 / 100 Balance 1168.33 / 1168.33 100 / 100 General: Awake, Alert, Oriented x 3 HEENT: PERRL, EOMI, Sclera Non Icteric Neck: Supple, Good ROM, No Lymph Node Enlargement Lungs: Clear to auscultation Cardiovascular: Regular Rhythm, Normal S1, Normal S2, No Murmurs, No Rubs, No Gallops 11/02/20 06:05: WBC 8.2, RBC 4.13 L, Hgb 12.2, Hct 37.1, MCV 89.8, MCH 29.5, MCHC 32.9, Plt Count 215, MPV 9.5 11/02/20 06:05: Sodium 135 L, Potassium 3.8, Chloride 102, Carbon Dioxide 27.0, Anion Gap 6, BUN 14, Creatinine 0.78, Est GFR (MDRD) Af Amer 94, Est GFR (MDRD) Non-Af 77, BUN/Creatinine Ratio 18.0, Glucose 221 H, Calcium 8.3 L, Total Bilirubin 0.60 Rhythm: EKG: ECHO: Stress Test: Cardiac Cath: PCI: CT Surgery: Holter monitor: EPS: PPM: CXR: Chest CT Scan: Medical Necessity - Tobacco Use Smoking Status: Never smoker Assessment/Plan 1. Patient underwent angioplasty and stenting of the right coronary artery. At this time she is doing well with no complications. The plan will be to continue the same medications at home. Ticagrelor would be called to her pharmacy. Follow-up in my office in 2 to 4 weeks. Thank you for allowing me to participate in the care of your patient. Please don't hesitate to call if any issues arise.
--- NOTE | 2020-11-02 10:26 | DCINST_ITS ---
Discharge Diet: Low fat/ Low Cholesterol Discharge Activity: Return to Normal Activity Additional Activity Instructions:: You must have someone drive you home. Do not drive until instructed by your doctor. You must have someone stay with you all night after your test. Rest in bed or on the couch until the next morning. Limit the number of times you go up and down stairs the day of your test. Call your doctor if your incision/area has: Continuous Slow Oozing, Sudden Increased Bleeding, Increased Pain/ Swelling, Increased Redness, Foul Smelling Discharge, Swelling at the incision site Remove Dressing in (days):: 1 Additional Dressing/Incision Instructions:: Keep the dressing (bandage) on until the next morning. You may then shower, but do not take a tub bath for 5 days after your test. It is normal to have some tenderness and discomfort at the puncture site. Sometimes bruising also occurs. However, if pain, numbness, or coldness occurs below the puncture site (in your leg, toes, arms or fingers) call your doctor at once. You may have a small, marble sized knot at the puncture site. This is normal. Do not rub it. It will go away in 4-6 weeks. Bleeding can occur from the area where the puncture was done. Blood may spurt or drip from the site. If blood spurts, apply pressure right away to stop bleeding and call 911. Although rare, bleeding into the tissue (hematoma) can also occur. If this happens, a large, firm area goose egg under the skin will appear. If any of these occur, lie down as flat as you can and have someone apply firm pressure to the cath site with a gauze pad or a clean washcloth for 10-15 sonia pedro. Call 911 or go to the Emergency Department. Allergies/Adverse Reactions: Allergies pitavastatin [From Livalo] Adverse Reaction (Verified 10/03/20 08:17) muscle pain Xdvalup-Lxm-Ljl Reductase Inhibitor Adverse Reaction (Verified 10/03/20 08:17) muscle pain Medications to take at Discharge aspirin 81 mg tablet,delayed release 81 mg PO DAILY 10/01/20 atenolol 50 mg tablet 100 mg PO QHS tab 10/01/20 ezetimibe 10 mg tablet 10 mg PO DAILY 10/01/20 fluoxetine 20 mg capsule 20 mg PO DAILY 10/01/20 hydrochlorothiazide 25 mg tablet 25 mg PO DAILY 10/01/20 insulin NPH isoph U-100 human 100 unit/mL subcutaneous suspension 20 unit SC BID ml 10/01/20 omega 3,6,9 combination no.7 92 mg (43 mg-22 [id number]) chew tablet 92 mg PO DAILY 10/01/20 ranolazine 500 mg tablet,extended release,12 hr 500 mg PO BID 10/01/20 metformin 1,000 mg tablet 500 mg PO BID tab 10/03/20 olmesartan 20 mg tablet 20 mg PO DAILY 10/03/20 red yeast rice 600 mg tablet 600 mg PO DAILY 10/03/20 ticagrelor 90 mg tablet 90 mg PO BID #60 tab 10/05/20 Orders to be completed after discharge: Phase II, Outpatient Cardiac Rehab Location: None Selected Primary Care Physician: Terri Rowland CORPORATE SALES TRAINER, CORPORATE SALES TRAINER-C [Primary Care Provider] - Test Results: Test results from this visit will be discussed in further detail at your follow- up appointment, if applicable. Please Follow Up With: Jonas Gray MD - 3-4 weeks Cardiac Rehabilitation Info Cardiac Rehabilitation Program Information: Cardiac Rehabilitation is important for patients like you who are recovering from a heart problem. Cardiac rehabilitation programs are recognized as integral to the continued care of the patient with coronary heart disease. The cardiac rehabilitation program is designed to optimize a patient's physical, psychological, and social functioning. Health wound care physician work in cardiac rehabilitation programs and assist you with getting the treatments you need to get stronger and healthier - like exercise, healthy eating habits, and medications. Cardiac rehabilitation has been show to help people with heart problems live longer and have better life enjoyment than people who do not go to cardiac rehabilitation. Please contact the Cardiac Rehabilitation Program at [facility] at in two weeks if you have not heard from them.
[2020-11-02 11:30] VITALS: BP 128/84; PULSE 68; RESP 18; TEMP 36.8
== END 2020-11-02 10:26 | disposition home or self-care (01) ==
LOC: CLSP 08:38 → PCU 15:26
PROVIDERS: PCP Nurse Practitioner Family; Referring Provider Specialist; Visit Provider Specialist
DX: R07.9 Chest pain, unspecified (principal); I10 Essential (primary) hypertension; E78.5 Hyperlipidemia, unspecified; I25.119 Atherosclerotic heart disease of native coronary artery with unspecified angina pectoris; F32.9 Major depressive disorder, single episode, unspecified; F41.9 Anxiety disorder, unspecified; M19.90 Unspecified osteoarthritis, unspecified site; I83.90 Asymptomatic varicose veins of unspecified lower extremity; E11.9 Type 2 diabetes mellitus without complications; E66.9 Obesity, unspecified; Z68.33 Body mass index [BMI] 33.0-33.9, adult; Z95.5 Presence of coronary angioplasty implant and graft; Z79.82 Long term (current) use of aspirin; Z79.4 Long term (current) use of insulin; Z79.899 Other long term (current) drug therapy
CPT/HCPCS: 80053; 82962; 85027; 92928; 93005; 99152; 99153; J7030; J7040; Q9967; C1725; C1769; C1874; C1887; C1894; C9600; J1327

== ENCOUNTER → 2020-12-31 09:39 | Outpatient (CLI) | payer OTHER, SELFPAY ==
[2020-12-31 08:34] VITALS: BMI 31.9
[2020-12-31 10:35] LABS: Absolute Lymphocyte Count 1.97 X10^3/uL (0.83-4.51); Basophil# 0.06 X10^3/uL; Basophil% 0.7 % (0-1); Eosinophil# 0.19 X10^3/uL; Eosinophils% 2.1 % (0-5); Hematocrit 38.2 % (37-47); Hemoglobin 12.8 g/dL (12.0-15.0); Lymphocyte # 1.97 X10^3/ul (4.0); Lymphocyte % 21.9 % (19-41); Mean Corp Hgb Conc 33.5 g/dL (32-36); Mean Corpuscular Hgb 30.4 pg (27.0-32.0); Mean Corpuscular Volume 90.7 fL (81-99); Mean Platelet Vol. 9.7 fl (6.2-12.0); Monocyte# 0.75 X10^3/uL; Monocyte% 8.3 % (0-10); NRBC Flagged by Analyzer 0 % (0-5); Neutrophil % 66.6 % (47-70); Platelet Count 267 K/mm3 (150-450); RBC Distribution Width CV 13.3 % (11.6-14.6); RBC Distribution Width SD 43.1 fl (35.1-43.9); Red Blood Count 4.21 M/mm3 (4.2-5.4)
== END ==
PROVIDERS: PCP Nurse Practitioner Family; Referring Provider Physician Assistant Medical; Visit Provider Physician Assistant Medical
DX: I25.119 Atherosclerotic heart disease of native coronary artery with unspecified angina pectoris (principal); I10 Essential (primary) hypertension
CPT/HCPCS: 36415; 85025